=== PATIENT | male | born 1980 | race Caucasian/White ===

== ENCOUNTER 2017-11-01 22:47 | Inpatient (IN) | payer OTHER ==
[2017-11-02] MEDS ORDERED: BISACODYL 10 MG SUPP PR
[2017-11-02] MEDS ORDERED: MAGNESIUM HYDROXIDE 30ML CUP PO
[2017-11-02] MEDS ORDERED: PENDING SANTYL ORDER FOR WOUND CARE XX
[2017-11-02 00:04] LABS: ADD UMIC NO; UR ASCORBIC ACID NEGATIVE (NEGATIVE); UR BILIRUBIN (Dip) NEGATIVE (NEGATIVE); UR BLOOD (Dip) NEGATIVE (NEGATIVE); UR CLARITY CLEAR (CLEAR); UR COLOR YELLOW (YELLOW); UR GLUCOSE (Dip) NEGATIVE (NEGATIVE); UR KETONES (Dip) NEGATIVE (NEGATIVE); UR LEUKOCYTE ESTERASE (Dip) NEGATIVE Leu/ul (NEGATIVE); UR NITRITE (Dip) NEGATIVE (NEGATIVE); UR SPECIFIC GRAVITY (Dip) 1.004 (1.003-1.030); UR TOTAL PROTEIN (Dip) NEGATIVE (NEGATIVE); UR UROBILINOGEN (Dip) NEGATIVE (NEGATIVE)
[2017-11-02] MEDS: ALBUTEROL 0.083% (NEB) 2.5 MG/3 ML AMP HHN ×5 (05:09→20:08)
[2017-11-02 06:29] LABS: ADD MAN DIFF? NO
[2017-11-02 06:37] LABS: BASOPHILS % 0.5 % (0.0-2.0); EOSINOPHILS # 0.2 10^3/ul (0.0-0.5); EOSINOPHILS % 3.9 % (0.0-7.0); HEMATOCRIT 32.7 % (42.0-52.0); HEMOGLOBIN 10.6 g/dl (14.0-18.0); LYMPHOCYTES # 0.9 10^3/ul (0.8-2.9); LYMPHOCYTES % 22.2 % (15.0-51.0); MEAN CORPUSCULAR HEMOGLOBIN 29.4 pg (29.0-33.0); MEAN CORPUSCULAR HGB CONC 32.4 g/dl (32.0-37.0); MEAN CORPUSCULAR VOLUME 90.6 fl (82.0-101.0); MEAN PLATELET VOLUME 9.9 fl (7.4-10.4); MONOCYTE # 0.3 10^3/ul (0.3-0.9); MONOCYTES % 7.2 % (0.0-11.0); NEUTROPHIL # 2.6 10^3/ul (1.6-7.5); NEUTROPHILS % 65.9 % (39.0-77.0); PLATELET COUNT 121 10^3/UL (140-415); RED BLOOD COUNT 3.61 10^6/ul (4.70-6.10)
[2017-11-02 06:37] LABS: WHITE BLOOD COUNT 3.9 10^3/ul (4.8-10.8)
[2017-11-02 07:12] LABS: ALANINE AMINOTRANSFERASE 39 IU/L (13-69); ALBUMIN 2.7 g/dl (3.3-4.9); ALKALINE PHOSPHATASE 426 IU/L (42-121); ANION GAP 10 (8-16); ASPARTATE AMINO TRANSFERASE 23 IU/L (15-46); BLOOD UREA NITROGEN 15 mg/dl (7-20); CALCIUM 8.8 mg/dl (8.4-10.2); CARBON DIOXIDE 23 mmol/L (21-31); CHLORIDE 107 mmol/L (97-110); CREATININE 0.92 mg/dl (0.61-1.24); GLUCOSE 85 mg/dl (70-220); SODIUM 136 mmol/L (135-144); TOTAL PROTEIN 5.7 g/dl (6.1-8.1)
[2017-11-02] MEDS: POLYETHYLENE GLYCOL 17 GM PACKET PO (08:57)
[2017-11-02] MEDS: PYRIDOXINE 50 MG TAB PO (08:58)
[2017-11-02] MEDS: RIFAMPIN 300 MG CAP PO (08:58)
[2017-11-02] MEDS: FAMOTIDINE 20 MG TAB PO ×2 (08:58→20:41)
[2017-11-02] MEDS: SENNA TAB PO ×2 (08:58→20:42)
[2017-11-02] MEDS: ETHAMBUTOL 400 MG TAB PO (08:58)
[2017-11-02] MEDS: PYRAZINAMIDE 500 MG TAB PO (08:58)
[2017-11-02] MEDS: CHOLECALCIFEROL 1,000 UNIT TAB PO (08:58)
[2017-11-02] MEDS: ISONIAZID 300 MG TAB PO (08:59)
[2017-11-02] MEDS: ASPIRIN 81 MG TAB PO (08:59)
[2017-11-02] MEDS: MULTIVITAMINS/MINERALS TAB PO (08:59)
[2017-11-02] MEDS: COLLAGENASE 30 GM TUBE TOP (11:00)
[2017-11-02] MEDS: ONDANSETRON 4 MG INJ IV ×3 (11:12→20:47)
[2017-11-02] MEDS: ACETAMINOPHEN 325 MG TAB PO (19:22)
[2017-11-02] MEDS: FOLIC ACID 1 MG TAB PO (20:41)
[2017-11-02] MEDS: ASCORBIC ACID 500 MG TAB PO (20:43)
[2017-11-03] MEDS: ALBUTEROL 0.083% (NEB) 2.5 MG/3 ML AMP HHN ×6 (00:59→21:56)
[2017-11-03 06:34] LABS: ADD MAN DIFF? NO
[2017-11-03 06:38] LABS: BASOPHILS % 0.6 % (0.0-2.0); EOSINOPHILS # 0.1 10^3/ul (0.0-0.5); EOSINOPHILS % 1.9 % (0.0-7.0); HEMATOCRIT 34.2 % (42.0-52.0); HEMOGLOBIN 11.2 g/dl (14.0-18.0); LYMPHOCYTES # 0.9 10^3/ul (0.8-2.9); LYMPHOCYTES % 26.8 % (15.0-51.0); MEAN CORPUSCULAR HEMOGLOBIN 29.6 pg (29.0-33.0); MEAN CORPUSCULAR HGB CONC 32.7 g/dl (32.0-37.0); MEAN CORPUSCULAR VOLUME 90.5 fl (82.0-101.0); MEAN PLATELET VOLUME 9.4 fl (7.4-10.4); MONOCYTE # 0.2 10^3/ul (0.3-0.9); MONOCYTES % 6.9 % (0.0-11.0); NEUTROPHILS % 63.2 % (39.0-77.0); PLATELET COUNT 132 10^3/UL (140-415); RED BLOOD COUNT 3.78 10^6/ul (4.70-6.10); RED CELL DISTRIBUTION WIDTH 20.2 % (11.5-14.5)
[2017-11-03 06:38] LABS: WHITE BLOOD COUNT 3.2 10^3/ul (4.8-10.8)
[2017-11-03 06:54] LABS: ANION GAP 15 (8-16); BLOOD UREA NITROGEN 16 mg/dl (7-20); CALCIUM 8.8 mg/dl (8.4-10.2); CARBON DIOXIDE 19 mmol/L (21-31); CHLORIDE 108 mmol/L (97-110); CREATININE 1.04 mg/dl (0.61-1.24); GLUCOSE 99 mg/dl (70-220); SODIUM 138 mmol/L (135-144)
[2017-11-03] MEDS: CHOLECALCIFEROL 1,000 UNIT TAB PO (08:41)
[2017-11-03] MEDS: PYRIDOXINE 50 MG TAB PO (08:41)
[2017-11-03] MEDS: FAMOTIDINE 20 MG TAB PO ×2 (08:41→21:08)
[2017-11-03] MEDS: RIFAMPIN 300 MG CAP PO (08:41)
[2017-11-03] MEDS: ETHAMBUTOL 400 MG TAB PO (08:41)
[2017-11-03] MEDS: POLYETHYLENE GLYCOL 17 GM PACKET PO (08:41)
[2017-11-03] MEDS: COLLAGENASE 30 GM TUBE TOP ×2 (08:41→14:30)
[2017-11-03] MEDS: PYRAZINAMIDE 500 MG TAB PO (08:42)
[2017-11-03] MEDS: ASPIRIN 81 MG TAB PO (08:42)
[2017-11-03] MEDS: ISONIAZID 300 MG TAB PO (08:42)
[2017-11-03] MEDS: SENNA TAB PO ×2 (08:43→21:08)
[2017-11-03] MEDS: traMADol 50 MG TAB PO ×2 (08:46→18:32)
[2017-11-03] MEDS: ONDANSETRON 4 MG INJ IV ×2 (11:26→21:08)
[2017-11-03] MEDS ORDERED: EPOETIN 10000 UNITS/1 ML INJ (ESRD) SC (17:00)
[2017-11-03] MEDS: MULTIVITAMINS/MINERALS TAB PO (21:08)
[2017-11-03] MEDS: FOLIC ACID 1 MG TAB PO (21:13)
[2017-11-03] MEDS: ASCORBIC ACID 500 MG TAB PO (21:13)
[2017-11-04] MEDS: ALBUTEROL 0.083% (NEB) 2.5 MG/3 ML AMP HHN ×6 (01:41→21:13)
[2017-11-04 07:19] LABS: ALANINE AMINOTRANSFERASE 36 IU/L (13-69); ALBUMIN 2.9 g/dl (3.3-4.9); ALBUMIN/GLOBULIN RATIO 0.93; ALKALINE PHOSPHATASE 370 IU/L (42-121); ANION GAP 14 (8-16); ASPARTATE AMINO TRANSFERASE 19 IU/L (15-46); BLOOD UREA NITROGEN 16 mg/dl (7-20); CALCIUM 8.8 mg/dl (8.4-10.2); CARBON DIOXIDE 20 mmol/L (21-31); CHLORIDE 107 mmol/L (97-110); CREATININE 0.87 mg/dl (0.61-1.24); GLUCOSE 105 mg/dl (70-220); POTASSIUM 4.1 mmol/L (3.5-5.1); SODIUM 137 mmol/L (135-144)
[2017-11-04] MEDS: ONDANSETRON 4 MG INJ IV (08:24)
[2017-11-04] MEDS: ASPIRIN 81 MG TAB PO (08:24)
[2017-11-04] MEDS: FOLIC ACID 1 MG TAB PO (08:24)
[2017-11-04] MEDS: CHOLECALCIFEROL 1,000 UNIT TAB PO (08:24)
[2017-11-04] MEDS: ASCORBIC ACID 500 MG TAB PO (08:24)
[2017-11-04] MEDS: ISONIAZID 300 MG TAB PO (08:24)
[2017-11-04] MEDS: traMADol 50 MG TAB PO ×2 (08:24→16:30)
[2017-11-04] MEDS: PYRAZINAMIDE 500 MG TAB PO (08:24)
[2017-11-04] MEDS: RIFAMPIN 300 MG CAP PO (08:24)
[2017-11-04] MEDS: PYRIDOXINE 50 MG TAB PO (08:24)
[2017-11-04] MEDS: ETHAMBUTOL 400 MG TAB PO (08:24)
[2017-11-04] MEDS: SENNA TAB PO ×2 (08:25→21:02)
[2017-11-04] MEDS: POLYETHYLENE GLYCOL 17 GM PACKET PO (08:25)
[2017-11-04] MEDS: FAMOTIDINE 20 MG TAB PO ×2 (08:25→21:02)
[2017-11-04] MEDS: COLLAGENASE 30 GM TUBE TOP ×2 (08:26)
[2017-11-04] MEDS: MULTIVITAMINS/MINERALS TAB PO (21:02)
[2017-11-05] MEDS: ALBUTEROL 0.083% (NEB) 2.5 MG/3 ML AMP HHN ×6 (00:21→21:04)
[2017-11-05] MEDS: SENNA TAB PO ×2 (09:00→20:23)
[2017-11-05] MEDS: POLYETHYLENE GLYCOL 17 GM PACKET PO (09:00)
[2017-11-05] MEDS: traMADol 50 MG TAB PO ×3 (09:05→20:23)
[2017-11-05] MEDS: FOLIC ACID 1 MG TAB PO (09:05)
[2017-11-05] MEDS: FAMOTIDINE 20 MG TAB PO ×2 (09:05→20:23)
[2017-11-05] MEDS: PYRIDOXINE 50 MG TAB PO (09:06)
[2017-11-05] MEDS: ASPIRIN 81 MG TAB PO (09:07)
[2017-11-05] MEDS: PYRAZINAMIDE 500 MG TAB PO (09:07)
[2017-11-05] MEDS: ETHAMBUTOL 400 MG TAB PO (09:07)
[2017-11-05] MEDS: CHOLECALCIFEROL 1,000 UNIT TAB PO (09:08)
[2017-11-05] MEDS: ISONIAZID 300 MG TAB PO (09:08)
[2017-11-05] MEDS: ASCORBIC ACID 500 MG TAB PO (09:08)
[2017-11-05] MEDS: RIFAMPIN 300 MG CAP PO (09:08)
[2017-11-05] MEDS: COLLAGENASE 30 GM TUBE TOP ×2 (09:08)
[2017-11-05] MEDS: ONDANSETRON 4 MG INJ IV ×2 (10:57→20:28)
[2017-11-05] MEDS: INFLUENZA VIRUS VACCINE 0.5 ML (DISPENSING) IM* (17:43)
[2017-11-05] MEDS: MULTIVITAMINS/MINERALS TAB PO (20:22)
[2017-11-06] MEDS: ALBUTEROL 0.083% (NEB) 2.5 MG/3 ML AMP HHN ×6 (01:42→21:02)
[2017-11-06] MEDS: traMADol 50 MG TAB PO ×2 (01:49→13:42)
[2017-11-06] MEDS: POLYETHYLENE GLYCOL 17 GM PACKET PO (09:00)
[2017-11-06] MEDS: ETHAMBUTOL 400 MG TAB PO (09:44)
[2017-11-06] MEDS: SENNA TAB PO ×2 (09:44→21:00)
[2017-11-06] MEDS: CHOLECALCIFEROL 1,000 UNIT TAB PO (09:45)
[2017-11-06] MEDS: FAMOTIDINE 20 MG TAB PO ×2 (09:45→21:16)
[2017-11-06] MEDS: PYRAZINAMIDE 500 MG TAB PO (09:45)
[2017-11-06] MEDS: COLLAGENASE 30 GM TUBE TOP ×2 (09:45)
[2017-11-06] MEDS: ISONIAZID 300 MG TAB PO (09:45)
[2017-11-06] MEDS ORDERED: PROPOFOL 40 ML (12:15)
[2017-11-06] MEDS ORDERED: LIDOCAINE 2% (SDV) 5 ML INJ (12:15)
[2017-11-06] MEDS: ONDANSETRON 4 MG INJ IV ×2 (16:19→21:20)
[2017-11-06] MEDS: PYRIDOXINE 50 MG TAB PO (21:15)
[2017-11-06] MEDS: ASCORBIC ACID 500 MG TAB PO (21:16)
[2017-11-06] MEDS: FOLIC ACID 1 MG TAB PO (21:16)
[2017-11-06] MEDS: RIFAMPIN 300 MG CAP PO (21:16)
[2017-11-06] MEDS: MULTIVITAMINS/MINERALS TAB PO (21:16)
[2017-11-07] MEDS: METOCLOPRAMIDE 10 MG INJ IV (00:29)
[2017-11-07] MEDS: ALBUTEROL 0.083% (NEB) 2.5 MG/3 ML AMP HHN ×6 (01:00→20:44)
[2017-11-07] MEDS: ONDANSETRON 4 MG INJ IV ×2 (07:02→21:23)
[2017-11-07] MEDS: traMADol 50 MG TAB PO (07:02)
[2017-11-07] MEDS: SENNA TAB PO ×2 (08:24→20:10)
[2017-11-07] MEDS: ISONIAZID 300 MG TAB PO (08:24)
[2017-11-07] MEDS: ETHAMBUTOL 400 MG TAB PO (08:24)
[2017-11-07] MEDS: CHOLECALCIFEROL 1,000 UNIT TAB PO (08:24)
[2017-11-07] MEDS: PYRAZINAMIDE 500 MG TAB PO (08:24)
[2017-11-07] MEDS: POLYETHYLENE GLYCOL 17 GM PACKET PO (08:24)
[2017-11-07] MEDS: FAMOTIDINE 20 MG TAB PO ×2 (08:24→20:09)
[2017-11-07] MEDS: COLLAGENASE 30 GM TUBE TOP ×2 (08:25)
[2017-11-07] MEDS: HYDROCODONE/APAP (5/325) TAB PO ×2 (13:46→20:14)
[2017-11-07] MEDS: PYRIDOXINE 50 MG TAB PO (20:09)
[2017-11-07] MEDS: ASCORBIC ACID 500 MG TAB PO (20:09)
[2017-11-07] MEDS: FOLIC ACID 1 MG TAB PO (20:09)
[2017-11-07] MEDS: MULTIVITAMINS/MINERALS TAB PO (20:10)
[2017-11-07] MEDS: RIFAMPIN 300 MG CAP PO (20:10)
[2017-11-08] MEDS: ALBUTEROL 0.083% (NEB) 2.5 MG/3 ML AMP HHN ×6 (01:00→22:00)
[2017-11-08] MEDS: ONDANSETRON 4 MG INJ IV ×3 (06:03→20:26)
[2017-11-08] MEDS: HYDROCODONE/APAP (5/325) TAB PO ×3 (06:03→20:26)
[2017-11-08] MEDS: ISONIAZID 300 MG TAB PO (09:19)
[2017-11-08] MEDS: FAMOTIDINE 20 MG TAB PO ×2 (09:24→20:25)
[2017-11-08] MEDS: ETHAMBUTOL 400 MG TAB PO (09:24)
[2017-11-08] MEDS: RIFAMPIN 300 MG CAP PO (09:28)
[2017-11-08] MEDS: PYRAZINAMIDE 500 MG TAB PO (09:29)
[2017-11-08] MEDS: CHOLECALCIFEROL 1,000 UNIT TAB PO (09:30)
[2017-11-08] MEDS: SENNA TAB PO ×2 (09:30→20:25)
[2017-11-08] MEDS: POLYETHYLENE GLYCOL 17 GM PACKET PO (09:31)
[2017-11-08] MEDS: PYRIDOXINE 50 MG TAB PO (09:35)
[2017-11-08] MEDS: COLLAGENASE 30 GM TUBE TOP ×2 (09:45→09:47)
[2017-11-08] MEDS: FOLIC ACID 1 MG TAB PO (20:25)
[2017-11-08] MEDS: ASCORBIC ACID 500 MG TAB PO (20:25)
[2017-11-08] MEDS: MULTIVITAMINS/MINERALS TAB PO (20:25)
[2017-11-09] MEDS: ALBUTEROL 0.083% (NEB) 2.5 MG/3 ML AMP HHN ×6 (00:15→20:26)
[2017-11-09] MEDS: POLYETHYLENE GLYCOL 17 GM PACKET PO (08:56)
[2017-11-09] MEDS: HYDROCODONE/APAP (5/325) TAB PO ×3 (08:56→21:50)
[2017-11-09] MEDS: FAMOTIDINE 20 MG TAB PO ×2 (08:58→21:46)
[2017-11-09] MEDS: SENNA TAB PO ×2 (08:59→21:00)
[2017-11-09] MEDS: ETHAMBUTOL 400 MG TAB PO (09:01)
[2017-11-09] MEDS: PYRAZINAMIDE 500 MG TAB PO (09:02)
[2017-11-09] MEDS: CHOLECALCIFEROL 1,000 UNIT TAB PO (09:04)
[2017-11-09] MEDS: ISONIAZID 300 MG TAB PO (09:05)
[2017-11-09] MEDS: COLLAGENASE 30 GM TUBE TOP ×2 (09:06→09:10)
[2017-11-09] MEDS: MULTIVITAMINS/MINERALS TAB PO (21:46)
[2017-11-09] MEDS: ASCORBIC ACID 500 MG TAB PO (21:46)
[2017-11-09] MEDS: RIFAMPIN 300 MG CAP PO (21:46)
[2017-11-09] MEDS: FOLIC ACID 1 MG TAB PO (21:46)
[2017-11-09] MEDS: PYRIDOXINE 50 MG TAB PO (21:46)
[2017-11-10] MEDS: ALBUTEROL 0.083% (NEB) 2.5 MG/3 ML AMP HHN ×6 (00:30→21:12)
[2017-11-10 07:15] LABS: ADD MAN DIFF? NO
[2017-11-10 07:18] LABS: BASOPHILS % 1.3 % (0.0-2.0); EOSINOPHILS % 1.3 % (0.0-7.0); HEMATOCRIT 40.3 % (42.0-52.0); LYMPHOCYTES # 0.7 10^3/ul (0.8-2.9); LYMPHOCYTES % 23.3 % (15.0-51.0); MEAN CORPUSCULAR HEMOGLOBIN 30.3 pg (29.0-33.0); MEAN CORPUSCULAR HGB CONC 32.3 g/dl (32.0-37.0); MEAN CORPUSCULAR VOLUME 93.9 fl (82.0-101.0); MEAN PLATELET VOLUME 8.6 fl (7.4-10.4); MONOCYTE # 0.3 10^3/ul (0.3-0.9); MONOCYTES % 10.1 % (0.0-11.0); PLATELET COUNT 216 10^3/UL (140-415); RED BLOOD COUNT 4.29 10^6/ul (4.70-6.10); RED CELL DISTRIBUTION WIDTH 18.9 % (11.5-14.5)
[2017-11-10 07:18] LABS: WHITE BLOOD COUNT 3.2 10^3/ul (4.8-10.8)
[2017-11-10 07:48] LABS: ANION GAP 17 (8-16); BLOOD UREA NITROGEN 15 mg/dl (7-20); CALCIUM 9.1 mg/dl (8.4-10.2); CARBON DIOXIDE 20 mmol/L (21-31); CHLORIDE 108 mmol/L (97-110); CREATININE 0.77 mg/dl (0.61-1.24); GLUCOSE 94 mg/dl (70-220); POTASSIUM 4.4 mmol/L (3.5-5.1); SODIUM 141 mmol/L (135-144)
[2017-11-10] MEDS: CHOLECALCIFEROL 1,000 UNIT TAB PO (08:28)
[2017-11-10] MEDS: POLYETHYLENE GLYCOL 17 GM PACKET PO (08:28)
[2017-11-10] MEDS: PYRAZINAMIDE 500 MG TAB PO (08:28)
[2017-11-10] MEDS: SENNA TAB PO ×2 (08:28→21:00)
[2017-11-10] MEDS: FAMOTIDINE 20 MG TAB PO ×2 (08:28→21:42)
[2017-11-10] MEDS: ETHAMBUTOL 400 MG TAB PO (08:28)
[2017-11-10] MEDS: ISONIAZID 300 MG TAB PO (08:29)
[2017-11-10] MEDS: HYDROCODONE/APAP (5/325) TAB PO ×2 (08:29→18:04)
[2017-11-10] MEDS: COLLAGENASE 30 GM TUBE TOP ×2 (08:35→08:36)
[2017-11-10] MEDS: NEOMYC/POLYMYX/BACIT 30 GM OINT TOP (13:50)
[2017-11-10] MEDS: MULTIVITAMINS/MINERALS TAB PO (21:42)
[2017-11-10] MEDS: FOLIC ACID 1 MG TAB PO (21:42)
[2017-11-10] MEDS: ASCORBIC ACID 500 MG TAB PO (21:42)
[2017-11-10] MEDS: PYRIDOXINE 50 MG TAB PO (21:42)
[2017-11-10] MEDS: RIFAMPIN 300 MG CAP PO (21:43)
[2017-11-11] MEDS: ALBUTEROL 0.083% (NEB) 2.5 MG/3 ML AMP HHN ×6 (01:28→20:10)
[2017-11-11] MEDS: ERGOCALCIFEROL 50,000 UNIT CAP PO (08:49)
[2017-11-11] MEDS: SENNA TAB PO ×2 (08:49→21:00)
[2017-11-11] MEDS: POLYETHYLENE GLYCOL 17 GM PACKET PO (08:49)
[2017-11-11] MEDS: PYRAZINAMIDE 500 MG TAB PO (08:49)
[2017-11-11] MEDS: FAMOTIDINE 20 MG TAB PO ×2 (08:49→21:18)
[2017-11-11] MEDS: ETHAMBUTOL 400 MG TAB PO (08:49)
[2017-11-11] MEDS: CHOLECALCIFEROL 1,000 UNIT TAB PO (08:49)
[2017-11-11] MEDS: COLLAGENASE 30 GM TUBE TOP ×2 (08:50)
[2017-11-11] MEDS: ISONIAZID 300 MG TAB PO (08:50)
[2017-11-11] MEDS: NEOMYC/POLYMYX/BACIT 30 GM OINT TOP (08:51)
[2017-11-11] MEDS: ONDANSETRON 4 MG INJ IV (08:57)
[2017-11-11] MEDS: HYDROCODONE/APAP (5/325) TAB PO (09:47)
[2017-11-11] MEDS: RIFAMPIN 300 MG CAP PO (21:17)
[2017-11-11] MEDS: MULTIVITAMINS/MINERALS TAB PO (21:17)
[2017-11-11] MEDS: FOLIC ACID 1 MG TAB PO (21:17)
[2017-11-11] MEDS: ASCORBIC ACID 500 MG TAB PO (21:17)
[2017-11-11] MEDS: PYRIDOXINE 50 MG TAB PO (21:17)
[2017-11-12] MEDS: ALBUTEROL 0.083% (NEB) 2.5 MG/3 ML AMP HHN ×6 (00:48→21:38)
[2017-11-12 07:10] LABS: ADD MAN DIFF? NO
[2017-11-12 07:23] LABS: BASOPHILS % 1.3 % (0.0-2.0); EOSINOPHILS % 1.3 % (0.0-7.0); HEMATOCRIT 36.2 % (42.0-52.0); HEMOGLOBIN 11.7 g/dl (14.0-18.0); LYMPHOCYTES # 0.9 10^3/ul (0.8-2.9); LYMPHOCYTES % 30.8 % (15.0-51.0); MEAN CORPUSCULAR HEMOGLOBIN 29.7 pg (29.0-33.0); MEAN CORPUSCULAR HGB CONC 32.3 g/dl (32.0-37.0); MEAN CORPUSCULAR VOLUME 91.9 fl (82.0-101.0); MEAN PLATELET VOLUME 8.6 fl (7.4-10.4); MONOCYTE # 0.4 10^3/ul (0.3-0.9); MONOCYTES % 13.7 % (0.0-11.0); NEUTROPHIL # 1.6 10^3/ul (1.6-7.5); NEUTROPHILS % 52.6 % (39.0-77.0); PLATELET COUNT 217 10^3/UL (140-415); RED BLOOD COUNT 3.94 10^6/ul (4.70-6.10); RED CELL DISTRIBUTION WIDTH 18.3 % (11.5-14.5)
[2017-11-12 07:52] LABS: ALANINE AMINOTRANSFERASE 41 IU/L (13-69); ALKALINE PHOSPHATASE 300 IU/L (42-121); ANION GAP 14 (8-16); ASPARTATE AMINO TRANSFERASE 42 IU/L (15-46); BILIRUBIN,INDIRECT 0.3 mg/dl (0-1.1); BILIRUBIN,TOTAL 0.3 mg/dl (0.2-1.3); BLOOD UREA NITROGEN 14 mg/dl (7-20); CALCIUM 8.8 mg/dl (8.4-10.2); CARBON DIOXIDE 21 mmol/L (21-31); CHLORIDE 110 mmol/L (97-110); CREATININE 0.71 mg/dl (0.61-1.24); GLUCOSE 87 mg/dl (70-220); SODIUM 141 mmol/L (135-144); TOTAL PROTEIN 6.3 g/dl (6.1-8.1)
[2017-11-12] MEDS: ONDANSETRON 4 MG INJ IV (08:40)
[2017-11-12] MEDS: FAMOTIDINE 20 MG TAB PO ×2 (08:40→20:50)
[2017-11-12] MEDS: POLYETHYLENE GLYCOL 17 GM PACKET PO (08:40)
[2017-11-12] MEDS: ETHAMBUTOL 400 MG TAB PO (08:40)
[2017-11-12] MEDS: CHOLECALCIFEROL 1,000 UNIT TAB PO (08:40)
[2017-11-12] MEDS: SENNA TAB PO ×2 (08:40→20:51)
[2017-11-12] MEDS: HYDROCODONE/APAP (5/325) TAB PO ×2 (08:40→19:02)
[2017-11-12] MEDS: ISONIAZID 300 MG TAB PO (08:40)
[2017-11-12] MEDS: PYRAZINAMIDE 500 MG TAB PO (08:40)
[2017-11-12] MEDS: COLLAGENASE 30 GM TUBE TOP ×2 (08:41)
[2017-11-12] MEDS: NEOMYC/POLYMYX/BACIT 30 GM OINT TOP (08:41)
[2017-11-12] MEDS: METOCLOPRAMIDE 10 MG INJ IV (11:50)
[2017-11-12] MEDS: CEPHALEXIN 500 MG CAP PO ×2 (17:59→23:29)
[2017-11-12] MEDS: ZINC SULFATE 220 MG CAP PO (20:51)
[2017-11-12] MEDS: ASCORBIC ACID 500 MG TAB PO (20:51)
[2017-11-12] MEDS: MULTIVITAMINS/MINERALS TAB PO (20:51)
[2017-11-12] MEDS: FOLIC ACID 1 MG TAB PO (20:52)
[2017-11-12] MEDS: RIFAMPIN 300 MG CAP PO (20:52)
[2017-11-12] MEDS: PYRIDOXINE 50 MG TAB PO (20:52)
[2017-11-13] MEDS: ALBUTEROL 0.083% (NEB) 2.5 MG/3 ML AMP HHN ×6 (00:35→19:39)
[2017-11-13] MEDS: CEPHALEXIN 500 MG CAP PO ×3 (06:38→21:38)
[2017-11-13] MEDS: COLLAGENASE 30 GM TUBE TOP ×2 (09:05→09:08)
[2017-11-13] MEDS: NEOMYC/POLYMYX/BACIT 30 GM OINT TOP (09:06)
[2017-11-13] MEDS: SENNA TAB PO ×2 (09:07→20:48)
[2017-11-13] MEDS: ISONIAZID 300 MG TAB PO (09:07)
[2017-11-13] MEDS: ETHAMBUTOL 400 MG TAB PO (09:07)
[2017-11-13] MEDS: CHOLECALCIFEROL 1,000 UNIT TAB PO (09:07)
[2017-11-13] MEDS: POLYETHYLENE GLYCOL 17 GM PACKET PO (09:07)
[2017-11-13] MEDS: FAMOTIDINE 20 MG TAB PO ×2 (09:07→20:46)
[2017-11-13] MEDS: PYRAZINAMIDE 500 MG TAB PO (09:07)
[2017-11-13] MEDS: HYDROCODONE/APAP (5/325) TAB PO ×2 (09:08→14:09)
[2017-11-13] MEDS: ONDANSETRON 4 MG INJ IV (11:37)
[2017-11-13] MEDS: traMADol 50 MG TAB PO (17:36)
[2017-11-13] MEDS: ASCORBIC ACID 500 MG TAB PO (20:46)
[2017-11-13] MEDS: MULTIVITAMINS/MINERALS TAB PO (20:46)
[2017-11-13] MEDS: RIFAMPIN 300 MG CAP PO (20:46)
[2017-11-13] MEDS: PYRIDOXINE 50 MG TAB PO (20:46)
[2017-11-13] MEDS: ZINC SULFATE 220 MG CAP PO (20:46)
[2017-11-13] MEDS: FOLIC ACID 1 MG TAB PO (20:46)
[2017-11-14] MEDS: ALBUTEROL 0.083% (NEB) 2.5 MG/3 ML AMP HHN ×6 (01:29→21:28)
[2017-11-14] MEDS: CEPHALEXIN 500 MG CAP PO ×2 (05:31→13:05)
[2017-11-14] MEDS: METOCLOPRAMIDE 10 MG INJ IV ×2 (05:31→19:51)
[2017-11-14] MEDS: POLYETHYLENE GLYCOL 17 GM PACKET PO (10:03)
[2017-11-14] MEDS: ISONIAZID 300 MG TAB PO (10:04)
[2017-11-14] MEDS: SENNA TAB PO ×2 (10:04→20:28)
[2017-11-14] MEDS: HYDROCODONE/APAP (5/325) TAB PO ×2 (10:04→16:54)
[2017-11-14] MEDS: PYRAZINAMIDE 500 MG TAB PO (10:04)
[2017-11-14] MEDS: ONDANSETRON 4 MG INJ IV ×2 (10:04→17:56)
[2017-11-14] MEDS: FAMOTIDINE 20 MG TAB PO ×2 (10:04→20:28)
[2017-11-14] MEDS: CHOLECALCIFEROL 1,000 UNIT TAB PO (10:05)
[2017-11-14] MEDS: ETHAMBUTOL 400 MG TAB PO (10:05)
[2017-11-14] MEDS: COLLAGENASE 30 GM TUBE TOP ×2 (10:05→10:06)
[2017-11-14] MEDS: NEOMYC/POLYMYX/BACIT 30 GM OINT TOP (10:06)
[2017-11-14] MEDS: ASCORBIC ACID 500 MG TAB PO (20:27)
[2017-11-14] MEDS: PYRIDOXINE 50 MG TAB PO (20:27)
[2017-11-14] MEDS: MULTIVITAMINS/MINERALS TAB PO (20:28)
[2017-11-14] MEDS: RIFAMPIN 300 MG CAP PO (20:28)
[2017-11-14] MEDS: FOLIC ACID 1 MG TAB PO (20:28)
[2017-11-14] MEDS: ZINC SULFATE 220 MG CAP PO (20:28)
[2017-11-15] MEDS: ALBUTEROL 0.083% (NEB) 2.5 MG/3 ML AMP HHN ×6 (01:31→21:22)
[2017-11-15] MEDS: POLYETHYLENE GLYCOL 17 GM PACKET PO (09:00)
[2017-11-15] MEDS: SENNA TAB PO ×2 (09:04→21:00)
[2017-11-15] MEDS: ISONIAZID 300 MG TAB PO (09:04)
[2017-11-15] MEDS: ETHAMBUTOL 400 MG TAB PO (09:04)
[2017-11-15] MEDS: FAMOTIDINE 20 MG TAB PO ×2 (09:05→21:26)
[2017-11-15] MEDS: ONDANSETRON 4 MG INJ IV (09:05)
[2017-11-15] MEDS: HYDROCODONE/APAP (5/325) TAB PO ×2 (09:05→16:22)
[2017-11-15] MEDS: PYRAZINAMIDE 500 MG TAB PO (09:05)
[2017-11-15] MEDS: CHOLECALCIFEROL 1,000 UNIT TAB PO (09:05)
[2017-11-15] MEDS: COLLAGENASE 30 GM TUBE TOP ×2 (09:05→09:06)
[2017-11-15] MEDS: NEOMYC/POLYMYX/BACIT 30 GM OINT TOP (09:06)
[2017-11-15] MEDS ORDERED: ETHAMBUTOL 400 MG TAB PO (16:30)
[2017-11-15] MEDS: ZINC SULFATE 220 MG CAP PO (21:26)
[2017-11-15] MEDS: ASCORBIC ACID 500 MG TAB PO (21:26)
[2017-11-15] MEDS: RIFAMPIN 300 MG CAP PO (21:26)
[2017-11-15] MEDS: PYRIDOXINE 50 MG TAB PO (21:26)
[2017-11-15] MEDS: FOLIC ACID 1 MG TAB PO (21:26)
[2017-11-15] MEDS: MULTIVITAMINS/MINERALS TAB PO (21:26)
[2017-11-16] MEDS: ALBUTEROL 0.083% (NEB) 2.5 MG/3 ML AMP HHN ×4 (01:52→13:37)
[2017-11-16] MEDS: CHOLECALCIFEROL 1,000 UNIT TAB PO (08:46)
[2017-11-16] MEDS: HYDROCODONE/APAP (5/325) TAB PO ×2 (08:46→14:42)
[2017-11-16] MEDS: ISONIAZID 300 MG TAB PO (08:46)
[2017-11-16] MEDS: SENNA TAB PO (08:46)
[2017-11-16] MEDS: FAMOTIDINE 20 MG TAB PO (08:46)
[2017-11-16] MEDS: ETHAMBUTOL 100 MG TAB PO (08:59)
[2017-11-16] MEDS: COLLAGENASE 30 GM TUBE TOP ×2 (09:00)
[2017-11-16] MEDS: PYRAZINAMIDE 500 MG TAB PO (09:00)
[2017-11-16] MEDS: NEOMYC/POLYMYX/BACIT 30 GM OINT TOP (09:00)
[2017-11-16] MEDS: POLYETHYLENE GLYCOL 17 GM PACKET PO (09:02)
[2017-11-16] MEDS: ETHAMBUTOL 400 MG TAB PO (13:06)
== END 2017-11-16 17:00 | disposition home health service (06) | DRG 92 ==
LOC: VRC 11-03 19:07
PROC: F07Z5ZZ Bed Mobility Treatment (ICD-10-PCS; principal; 2017-11-06 11:20)
PROC: F08Z2ZZ Grooming/Personal Hygiene Treatment (ICD-10-PCS; 2017-11-06 11:20)
PROC: F06Z6ZZ Communicative/Cognitive Integration Skills Treatment (ICD-10-PCS; 2017-11-06 11:20)
PROC: 0DP6XUZ Removal of Feeding Device from Stomach, External Approach (ICD-10-PCS; 2017-11-06 11:20)
DX: G72.9 Myopathy, unspecified (principal); N17.9 Acute kidney failure, unspecified; I96 Gangrene, not elsewhere classified; L89.150 Pressure ulcer of sacral region, unstageable; E46 Unspecified protein-calorie malnutrition; R64 Cachexia; Z68.1 Body mass index [BMI] 19.9 or less, adult; R13.10 Dysphagia, unspecified; Z93.1 Gastrostomy status; Z79.82 Long term (current) use of aspirin; D64.9 Anemia, unspecified; E55.9 Vitamin D deficiency, unspecified
CPT/HCPCS: 76536; 80048; 80053; 81003; 82306; 85025; 87081; 87086; 90686; 92610; 93922; 94640; 94664; 97110; 97112; 97116; 97150; 97163; 97167; 97530; 97535; 97542

== ENCOUNTER 2018-10-09 16:41 | Emergency (ER) | payer SELFPAY, OTHER | END 2018-10-09 23:47 | disposition left against medical advice (07) | LOC: E/R 16:41 | DX: Z53.21 Procedure and treatment not carried out due to patient leaving prior to being seen by health care provider (principal) | CPT/HCPCS: 93005 ==